=== PATIENT | female | born 1955 | race Caucasian/White ===

== ENCOUNTER 2020-04-10 13:13 | Inpatient (IN) | payer MEDICARE ==
[~2020-04-10] VITALS: Ht 149.9 cm; Wt 58.3 kg
[2020-04-10] MEDS ORDERED: HYDROCODONE/ACETAMINOPHEN 5/325 MG TAB ONE (13:56)
[2020-04-10] MEDS ORDERED: KETOROLAC 30MG VIAL (30MG/ML) ONE (13:59)
[2020-04-10] MEDS ORDERED: ONDANSETRON 4MG INJ ONE (15:49)
[2020-04-10 16:23] LABS: BASOPHILS % (AUTO) 0.8 % (0.0-5.0); EOSINOPHILS % (AUTO) 0.6 % (0.0-8.0); HEMATOCRIT 45.8 % (36-48); LYMPHOCYTES % (AUTO) 19.4 % (21.0-51.0); MEAN CORPUSCULAR HEMOGLOBIN 31.3 pg (27.0-33.0); MEAN CORPUSCULAR HGB CONC 34.9 g/dL (32.0-36.0); MEAN CORPUSCULAR VOLUME 89.5 fL (79-99); MONOCYTES % (AUTO) 5.9 % (3.0-13.0); NEUTROPHILS % (AUTO) 72.8 % (40.0-77.0); PLATELET COUNT (AUTO) 209 K/uL (130-400); RED BLOOD CELL COUNT(AUTO) 5.12 MIL/uL (4.00-5.50); RED CELL DISTRIBUTION WIDTH 12.6 % (11.0-15.5); WHITE BLOOD COUNT (AUTO) 11.6 K/uL (4.8-10.8)
[2020-04-10 16:29] LABS: CREATININE 0.8 mg/dL (0.5-1.5); POTASSIUM 3.6 mmol/L (3.5-5.1)
[2020-04-10 16:32] LABS: PROTHROMBIN TIME 10.9 SEC (9.6-11.6)
[2020-04-10 16:33] LABS: PARTIAL THROMBOPLASTIN TIME 28.8 SEC (26.3-35.5)
[2020-04-10 16:34] LABS: ALBUMIN 4.4 g/dL (3.5-5.0); BILIRUBIN,TOTAL 0.6 mg/dL (0.2-1.0)
[2020-04-10] MEDS ORDERED: ACETAMINOPHEN 325 MG TAB PO PRN ×2 (20:45)
[2020-04-10] MEDS ORDERED: ONDANSETRON 4MG INJ IV PRN (20:45)
[2020-04-10] MEDS ORDERED: METOPROLOL TARTRATE 25 MG TAB PO SCH (21:00)
[2020-04-10] MEDS ORDERED: MORPHINE 4 MG SYG ONE (21:36)
[2020-04-10] MEDS ORDERED: METOPROLOL TARTRATE 50 MG TAB ONE (21:36)
[2020-04-10] MEDS ORDERED: FAMOTIDINE 20MG VIAL IV ONE (21:37)
[2020-04-11] VITALS (21 sets, daily range): BP systolic 104–167; BP diastolic 37–143
[2020-04-11] MEDS ORDERED: MORPHINE 4 MG SYG ONE ×2 (04:14→09:10)
[2020-04-11] MEDS: NICOTINE 14 MG/ 24 HR PATCH TD SCH (09:00)
[2020-04-11] MEDS: HYDROCHLOROTHIAZIDE 25 MG TABLET PO SCH (09:00)
[2020-04-11] MEDS: LOSARTAN 100 MG TABLET PO SCH (09:00)
[2020-04-11] MEDS ORDERED: ONDANSETRON 4MG INJ ONE ×2 (09:10→18:17)
[2020-04-11] MEDS ORDERED: FAMOTIDINE 20MG VIAL IV ONE (09:11)
[2020-04-11] MEDS: MORPHINE 2 MG SYG IV PRN (13:26)
[2020-04-11] MEDS ORDERED: HYDRALAZINE 20MG/ML VIAL IV PRN (14:15)
[2020-04-11] MEDS ORDERED: SUCCINYLCHOLINE CHLORIDE 20 MG/ML 10 ML VIAL ONE (18:15)
[2020-04-11] MEDS ORDERED: LIDOCAINE PF 100MG/5ML (2%) SYRINGE 5ML ONE (18:15)
[2020-04-11] MEDS ORDERED: NEOSTIGMINE 5MG/5ML SYR IV ONE (18:17)
[2020-04-11] MEDS ORDERED: PROPOFOL 10 MG/ML 20ML VIAL IV ONE (18:17)
[2020-04-11] MEDS ORDERED: DEXAMETHASONE SOD PHOSPHATE 10MG/ML 1ML VIAL ONE (18:17)
[2020-04-11] MEDS ORDERED: MIDAZOLAM HCL 1 MG/ML 2ML VIAL ONE (18:17)
[2020-04-11] MEDS ORDERED: GLYCOPYRROLATE 1 MG/5 ML SYRINGE ONE (18:17)
[2020-04-11] MEDS ORDERED: ROCURONIUM 10MG/1ML SYR 10 MG/ML ML ONE (18:17)
[2020-04-11] MEDS ORDERED: MEPERIDINE-PF 25 MG/ML SYG ONE (18:18)
[2020-04-11] MEDS ORDERED: FENTANYL CITRATE PF 50 MCG/1 ML 2ML VIAL ONE ×4 (18:18→20:43)
[2020-04-11] MEDS ORDERED: CEFAZOLIN SODIUM 1 GM VIAL ONE ×2 (18:23→18:57)
[2020-04-11] MEDS ORDERED: ROPIVACAINE 0.5% 5MG/ML 30ML IJ ONE (18:24)
[2020-04-11] MEDS ORDERED: EPHEDRINE SULFATE 50 MG/ML AMPULE ONE (19:21)
[2020-04-11] MEDS ORDERED: KETOROLAC 30MG VIAL (30MG/ML) ONE (20:01)
[2020-04-11] MEDS ORDERED: LABETALOL 20MG VIAL IV ONE (20:47)
[2020-04-11] MEDS: METOPROLOL TARTRATE 50 MG TAB PO SCH (21:00)
[2020-04-11] MEDS: FAMOTIDINE 20MG VIAL IV SCH (21:00)
[2020-04-11] MEDS ORDERED: CEFAZOLIN SODIUM 1 GM VIAL IVP SCH (21:15)
[2020-04-12] VITALS (8 sets, daily range): BP systolic 105–147; BP diastolic 45–79
[2020-04-12] MEDS: CEFAZOLIN SODIUM 1 GM VIAL IVP SCH ×2 (03:00→11:56)
[2020-04-12 05:15] LABS: BASOPHILS % (AUTO) 0.1 % (0.0-5.0); HEMATOCRIT 31.5 % (36-48); LYMPHOCYTES % (AUTO) 7.5 % (21.0-51.0); MONOCYTES % (AUTO) 3.2 % (3.0-13.0); NEUTROPHILS % (AUTO) 88.7 % (40.0-77.0); PLATELET COUNT (AUTO) 134 K/uL (130-400); RED BLOOD CELL COUNT(AUTO) 3.35 MIL/uL (4.00-5.50); RED CELL DISTRIBUTION WIDTH 12.9 % (11.0-15.5); WHITE BLOOD COUNT (AUTO) 7.5 K/uL (4.8-10.8)
[2020-04-12 05:42] LABS: CREATININE 0.7 mg/dL (0.5-1.5); POTASSIUM 3.3 mmol/L (3.5-5.1)
[2020-04-12] MEDS: MORPHINE 2 MG SYG IV PRN ×4 (07:17→20:42)
[2020-04-12] MEDS: NICOTINE 14 MG/ 24 HR PATCH TD SCH (09:00)
[2020-04-12] MEDS: LOSARTAN 100 MG TABLET PO SCH (09:22)
[2020-04-12] MEDS: HYDROCHLOROTHIAZIDE 25 MG TABLET PO SCH (09:22)
[2020-04-12] MEDS: METOPROLOL TARTRATE 50 MG TAB PO SCH ×2 (09:22→20:41)
[2020-04-12] MEDS ORDERED: ASCO500C18 PO (11:32)
[2020-04-12] MEDS ORDERED: METO50TA18 PO (11:32)
[2020-04-12] MEDS ORDERED: CALC-1038 PO (11:32)
[2020-04-12] MEDS ORDERED: LOSA100T58 PO (11:32)
[2020-04-12] MEDS ORDERED: HYDR25TA PO (11:32)
[2020-04-12] MEDS ORDERED: CHOL500051 PO (11:32)
[2020-04-12] MEDS: KCL 20 MEQ ERTAB PO SCH (11:57)
[2020-04-12] MEDS: FAMOTIDINE 20MG VIAL IV SCH (20:41)
[2020-04-13 00:03] VITALS: BP 129/57
[2020-04-13] MEDS: MORPHINE 4 MG SYG IV PRN ×2 (01:07→08:54)
[2020-04-13 04:09] VITALS: BP 138/56
[2020-04-13 08:41] VITALS: BP 152/69
[2020-04-13] MEDS: HYDROCHLOROTHIAZIDE 25 MG TABLET PO SCH (08:52)
[2020-04-13] MEDS: METOPROLOL TARTRATE 50 MG TAB PO SCH (08:52)
[2020-04-13] MEDS: LOSARTAN 100 MG TABLET PO SCH (08:52)
[2020-04-13] MEDS: NICOTINE 14 MG/ 24 HR PATCH TD SCH (09:00)
[2020-04-13] MEDS: KCL 20 MEQ ERTAB PO SCH (09:45)
== END 2020-04-13 09:30 | disposition home or self-care (01) | DRG 494 ==
LOC: EDH 13:13 → EDHIP 20:45 → 3BH 04-11 13:14
PROVIDERS: ADMIT Internal Medicine; ATTEND Internal Medicine
PROC: 0QSH04Z Reposition Left Tibia with Internal Fixation Device, Open Approach (ICD-10-PCS; principal; 2020-04-11 15:00)
PROC: 0QSK04Z Reposition Left Fibula with Internal Fixation Device, Open Approach (ICD-10-PCS; 2020-04-11 15:00)
DX: S82.852A Displaced trimalleolar fracture of left lower leg, initial encounter for closed fracture (principal); I10 Essential (primary) hypertension; M81.0 Age-related osteoporosis without current pathological fracture; Z20.822 Contact with and (suspected) exposure to COVID-19; W00.9XXA Unspecified fall due to ice and snow, initial encounter; Y93.89 Activity, other specified; Y92.89 Other specified places as the place of occurrence of the external cause; Y99.8 Other external cause status; Z79.899 Other long term (current) drug therapy; Z88.2 Allergy status to sulfonamides
CPT/HCPCS: 36415; 71045; 73610; 73630; 80048; 80053; 85025; 85610; 85730; 86850; 86900; 86901; 87426; 93005; 97039; G0378; J0330; J0360; J0690; J1100; J1885; J2001; J2175; J2250; J2270; J2405; J2704; J2710; J2795; J3010; J3490; J7030; U0003